=== PATIENT | male | born 1995 | race Caucasian/White ===

== ENCOUNTER 2017-04-22 16:02 | Emergency (ER) | payer OTHER ==
[2017-04-22 16:19] VITALS: BP 144/84
[2017-04-22] MEDS ORDERED: Azithromycin TAB* 250 MG PO ONE (16:33)
--- NOTE | 2017-04-22 16:39 | UC ---
Complaint Male HPI - HPI Summary HPI Summary: This is an otherwise healthy 21 yo male who presented with request for STD testing. He states that his female partner was recently diagnosed with Chlamydia. He states she is his only partner, but is new. He denies known h/o STDs. No c/o penile discharge, dysuria, lesions, hematuria or testicular pain. - History of Current Complaint Chief Complaint: [facility]CGU Stated Complaint: STD TESTING - Allergies/Home Medications Allergies/Adverse Reactions: Allergies Allergy/AdvReac Type Severity Reaction Status Date / Time COLD WATER AdvReac Rash Uncoded 04/22/17 16:19 PMH/Surg Hx/FS Hx/Imm Hx Previously Healthy: Yes - Surgical History Surgical History: Yes Surgery Procedure, Year, and Place: hernia [id number] [facility] [place] - Family History Known Family History: Positive: None - Social History Alcohol Use: Occasionally Substance Use Type: None Smoking Status (MU): Never Smoked Tobacco - Immunization History Vaccination Up to Date: Yes Review of Systems Constitutional: Negative Skin: Negative Eyes: Negative ENT: Negative Respiratory: Negative Cardiovascular: Negative Gastrointestinal: Negative Genitourinary: Negative Motor: Negative Neurovascular: Negative Musculoskeletal: Negative Neurological: Negative Psychological: Negative All Other Systems Reviewed And Are Negative: Yes Physical Exam Triage Information Reviewed: Yes Appearance: Well-Appearing Vital Signs: Initial Vital Signs Temp 98.1 F 04/22/17 16:16 Pulse 73 04/22/17 16:16 Resp 12 04/22/17 16:16 BP 144/84 04/22/17 16:16 Pulse Ox 100 04/22/17 16:16 Vital Signs Reviewed: Yes ENT: Positive: Normal ENT inspection Neck: Positive: Supple, Nontender, No Lymphadenopathy Respiratory: Positive: Chest non-tender, Lungs clear. Negative: Crackles, Rhonchi, Stridor, Wheezing Cardiovascular: Positive: RRR, No Murmur Abdomen Description: Positive: Nontender, Soft Neurological: Positive: Alert Skin: Negative: rashes Complaint Male Course/Dx - Course Course Of Treatment: This is an otherwise healthy and asx 21 yo male who presents for STD testing after his female partner was diagnosed with Chlamydia. Testing is pending. Empiric treatment for Chlamydia with azithromycin given in the clinic today. Also tested for HIV and syphilis after educating patient. - Differential Dx/Diagnosis Differential Diagnosis/HQI/PQRI: Epididymitis, Prostatitis, Urinary Tract Infection, Other - STD Provider Diagnoses: 1. STD screening Discharge - Discharge Plan Condition: Stable Disposition: HOME Patient Education Materials: Chlamydia (ED), Sexually Transmitted Diseases (ED) , Safe Sex (ED) Additional Instructions: Instructions: 1. You have received treatment for chlamydia today 2. Your testing will be back early next week
[2017-04-23 11:28] LABS: Syphilis Index < 0.1 Index
--- NOTE | 2017-04-24 18:26 | UC ---
Progress - Progress Note Progress Note: PLS CALL PT AND ADVISE OF POSITIVE CHLAMYDIA. PT WAS TX ADEQUATELY WITH BELA IN CLINIC. PLS REITERATE NO SEX FOR AT LEAST A WEEK AND ADVISE TO FOLLOW [facility] IN THE FUTURE. - JORDAN MONTELONGO MD
== END 2017-04-22 16:56 | disposition home or self-care (01) ==
LOC: UCEAST 16:02
DX: Z11.3 Encounter for screening for infections with a predominantly sexual mode of transmission (principal); A74.9 Chlamydial infection, unspecified
CPT/HCPCS: 36415; 81003; 86592; 86703; 87491; 87591; 99212; A9270-GY; G0463